=== PATIENT | female | born 1960 | race Caucasian/White ===

== ENCOUNTER 2018-06-13 06:29 | Emergency (ER) | payer OTHER ==
[~2018-06-13] VITALS: Ht 154.9 cm; Wt 104.3 kg
[~2018-06-13 06:29] MED LIST: ACYCLOVIR800 MG PO; ARTOS OS; AZULFIDINE ENT500 MG PO; CLARITIN10 MG PO; CYCLOBENZAPRINE10 MG PO; DICLOFENAC SODI75 MG PO; FLUOXETINE HCL20 MG PO; FOLIC ACID1 MG PO; HYDROXYCHLOROQ200 MG PO; IMITREX100 MG PO; LACRI LUBE1 OIN OP; LOVASTATIN20 MG PO; METHOTREXATE2.5 M2 PO; NEU300 PO; NORCO1 TA2 PO; OMEPRAZOLE DR20 M1 PO; PREDNISONE20 MG PO; SIMVASTATIN20 M1 PO; SPIRONOLACTONE/1 TAB PO; TRAMADOL HCL50 MG PO
[2018-06-13 06:39] VITALS: Ht 154.9 cm; Wt 104.3 kg
[2018-06-13 07:34] LABS: ALBUMIN 4.9 g/dL (3.4-5.0); BILIRUBIN TOTAL 1.3 mg/dL (0.20-1.00); CALCIUM 9.7 mg/dL (8.5-10.1); CARBON DIOXIDE 27.7 mmol/L (21-32); CREATININE SERUM 1.1 mg/dL (0.6-1.0)
[2018-06-13 07:36] LABS: BASOPHIL % 0.7 % (0-2); PLATELET COUNT 313 x10^3mcL (130-400); RED CELL DISTRIBUTION WIDTH 13.2 % (11.5-14.5)
[2018-06-13 07:37] LABS: POTASSIUM SERUM 2.9 mmol/L (3.5-5.1); TOTAL PROTEIN, SERUM 8.3 g/dL (6.4-8.2)
[2018-06-13 09:46] VITALS: BP 113/67
[2018-06-13 10:02] LABS: UA SPECIFIC GRAVITY >=1.030 (1.005-1.035); microscopic required? YES; urine erythrocyte NEGATIVE (NEGATIVE)
== END 2018-06-13 12:24 | disposition home or self-care (01) ==
LOC: ED 06:29
PROVIDERS: Emergency Medicine
DX: E87.6 Hypokalemia (principal); N39.0 Urinary tract infection, site not specified; R19.7 Diarrhea, unspecified; R11.2 Nausea with vomiting, unspecified; R10.9 Unspecified abdominal pain; I10 Essential (primary) hypertension; E11.9 Type 2 diabetes mellitus without complications; E78.00 Pure hypercholesterolemia, unspecified; Z90.49 Acquired absence of other specified parts of digestive tract
CPT/HCPCS: J0696; J1885; J2405; J3010; J7050

== ENCOUNTER 2018-06-14 11:52 | Emergency (ER) | payer OTHER ==
[~2018-06-14] VITALS: Ht 154.9 cm; Wt 86.2 kg
[2018-06-14 12:18] VITALS: Ht 154.9 cm; Wt 86.2 kg
[2018-06-14 13:50] VITALS: BP 119/82
== END 2018-06-14 13:50 | disposition home or self-care (01) ==
LOC: ED 11:52
DX: M53.3 Sacrococcygeal disorders, not elsewhere classified (principal); I10 Essential (primary) hypertension; E11.9 Type 2 diabetes mellitus without complications; E78.00 Pure hypercholesterolemia, unspecified; Z90.49 Acquired absence of other specified parts of digestive tract
CPT/HCPCS: 20552; J3301; J3490